=== PATIENT | female | born 1990 | race Two or more races ===

== ENCOUNTER 2020-03-06 19:38 | Emergency (ER) | payer BC, OTHER ==
--- NOTE | 2020-03-06 19:48 | NUR ---
CALLED FOR TRIAGE, NO ANSWER.
--- NOTE | 2020-03-06 19:52 | NUR ---
CALLED FOR TRIAGE, NO ANSWER.
--- NOTE | 2020-03-06 19:56 | NUR ---
CALLED FOR TRIAGE, NO ANSWER.
--- NOTE | 2020-03-06 20:00 | NUR ---
CALLED FOR TRIAGE, NO ANSWER.
== END 2020-03-06 20:00 | disposition home or self-care (01) ==
LOC: ER 19:45
DX: Z53.21 Procedure and treatment not carried out due to patient leaving prior to being seen by health care provider (principal)